=== PATIENT | male | born 1970 | race African-American/Black ===

== ENCOUNTER → 2017-01-03 | Day surgery (SDC) | payer BC ==
[~2017-01-03] VITALS: Ht 182.9 cm; Wt 134.3 kg
[2017-01-03] VITALS (11 sets, daily range): BP systolic 86–146; BP diastolic 29–94
[~2017-01-03] MED LIST: Alfentanil 2ml Inj ONE; Atropine Inj 1mg/10ml Syr IV PRN; Bupivacaine w/Epi 0.25% 30ml Vial INJ ONE; DiphenhydrAMINE 50mg/ml Inj IVP PRN; EPINEPHrine 1mg/1ml Amp ONE; Glycopyrrolate 0.2mg/ml 1ml Vial ONE; HYDROmorphone 1mg/ml Carpuject SUBQ PRN; Hydromorphone 0.5mg/0.5ml inj IVP PRN; Ketorolac 30mg Inj IV PRN; Ketorolac 60mg Inj IV PRN; LISINOPRIL-HCT1 EACH ORAL; LORazepam Inj 2mg/ml 1ml IV PRN; LR 1000ml 1,000 ML IVLG SCH; LR 1000ml ONE; Labetalol 5mg/ml 20ml vial IV PRN; Lidocaine 1% Plain 30 ml INJ ONE; Meperidine 25mg/ml Inj IV PRN; Metoclopramide 10mg/2ml Inj IVP PRN; Midazolam 2mg/2ml Inj IVP PRN; Midazolam 2mg/2ml Inj ONE; Morphine Sulfate 2mg/ml Inj IVP PRN; NS Irrig 4000ml IRRIG ONE; Neostigmine 1mg/ml 10ml Inj ONE; Norco 5mg/325mg tab ORAL PRN; Norco 7.5mg/325mg tab ORAL PRN; Oxycodone/Acetaminophen 5-325 ORAL PRN; Propofol 10mg/ml 100ml btl IV ONE; Sterile Water Irrig 1000ml IRRIG ONE; Zemuron 50mg/5ml Inj IV ONE; fentaNYL 100 mcg/2 mL IV PRN
--- NOTE | 2017-01-03 07:18 | Anethesia Preoperative Eval ---
Anesthesia Pre-op PMH/ROS General Date of Evaluation: Jan 03, 2017 Time of Evaluation: 07:23 Anesthesiologist: Herson ASA Score: ASA 3 Mallampati Score Class I : Soft palate, uvula, fauces, pillars visible Class II: Soft palate, uvula, fauces visible Class III: Soft palate, base of uvula visible Class IV: Only hard plate visible Mallampati Classification: Class III Surgeon: Reynold Diagnosis: R Knee Pain Surgical Procedure: R Knee Arthroscopy Anesthesia History: none Family History: no anesthesia problems Allergies: Coded Allergies: No Known Allergies (Unverified , 01/02/17) Medications: see eMAR Past Medical History Cardiovascular: Reports: HTN Other: obesity - BMI 44 Morbid Anesthesia Pre-op Phys. Exam Physician Exam Last Vital Signs Date Time Temp Pulse Resp B/P Pulse Ox O2 Delivery O2 Flow Rate FiO2 01/03/17 06:13 98.4 89 18 146/94 96 Room Air Constitutional: NAD Neurologic: CN 2-12 intact Cardiovascular: RRR Respiratory: CTA Gastrointestinal: S/NT/ND Airway Exam Mallampati Score: Class III MO: limited ROM: limited Teeth: intact Anesthesia Pre-op A/P Risk Assessment & Plan Assessment: ASA 3 Plan: GA, Glidescope, BIS Pre-Antibiotics Dru Grams Ancef IV Given Within 1 Hr of Incision: Yes Time Given: 07:41 Jose Bains MD Jan 03, 2017 07:18
--- NOTE | 2017-01-03 07:18 | Pre-Procedure Note/Attestation ---
Pre-Procedure Note/Attestation Complete Prior to Procedure Planned Procedure: right Procedure Narrative: Right knee arthroscopy with partial menisectomy Attestation I attest that I discussed the nature of the procedure; its benefits; risks and complications; and alternatives (and the risks and benefits of such alternatives ), prior to the procedure, with the patient (or the patient's legal sales representative [employer]). I attest that, if there was a reasonable possibility of needing a blood transfusion, the patient (or the patient's legal sales representative [employer]) was given the [facility] standardized written summary, pursuant to the Adal Gael Blood Safety Act ([place] Health and Safety Code # 1645, as amended). I attest that I re-evaluated the patient just prior to the surgery and that there has been no change in the patient's H&P, except as documented below: LOKI RIVERA Jan 03, 2017 07:18
--- NOTE | 2017-01-03 07:20 | Immediate Post-Op Evaluation ---
Immediate Post-Op Evalulation Immediate Post-Op Evalulation Procedure: R Knee Arthroscopy Date of Evaluation: Jan 03, 2017 Time of Evaluation: 08:54 IV Fluids: 550 LR Blood Products: 0 Estimated Blood Loss: 10 Urinary Output: 0 Blood Pressure Systolic: 125 Blood Pressure Diastolic: 64 Pulse Rate: 86 Respiratory Rate: 16 O2 Sat by Pulse Oximetry: 100 Temperature (Fahrenheit): 97.9 Pain Score (1-10): 3 Nausea: No Vomiting: No Complications 0 Patient Status: awake, reacts, patent, none Hydration Status: adequate Dru Grams Ancef IV Given Within 1 Hr of Incision: Yes Time Given: 07:41 Jose Bains MD Jan 03, 2017 07:20
--- NOTE | 2017-01-03 08:08 | 48 Hour Post Anesthesia Eval ---
Post Anesthesia Evaluation Procedure: R Knee Arthroscopy Date of Evaluation: Jan 03, 2017 Time of Evaluation: 11:12 Blood Pressure Systolic: 134 0: 71 Pulse Rate: 83 Respiratory Rate: 18 Temperature (Fahrenheit): 97.9 O2 Sat by Pulse Oximetry: 100 Airway: patent Nausea: No Vomiting: No Pain Intensity: 3 Hydration Status: adequate Cardiopulmonary Status: Stable Mental Status/LOC: patient returned to baseline Follow-up Care/Observations: 0 Post-Anesthesia Complications: 0 Follow-up care needed: ready to discharge Jose Bains MD Jan 03, 2017 08:08
--- NOTE | 2017-01-03 08:36 | Brief Operative Note ---
Immediate Post Operative Note Operative Note Pre-op Diagnosis: Right knee meniscal tear Procedure: Right knee arthroscopy with partial menisectomy and bi-compartmental chondroplasty Post-op Diagnosis: same as pre-op Findings: consistent w/pre-op dx studies Surgeon: Reynold Anesthesiologist: Herson Anesthesia: general Specimen: none Complications: none Condition: stable Estimated Blood Loss: none Drains: none Implant(s) used?: No LOKI RIVERA Jan 03, 2017 08:35
--- NOTE | 2017-01-03 15:28 | Operative Note - Dictated ---
DATE OF OPERATION: 01/03/2017 SURGEON: Shahriar Flaherty M.D. ([facility] [place]) [employer] WORKER: None. ANESTHESIA: General plus local. COMPLICATIONS: None. ANTIBIOTICS: Ancef. PREOPERATIVE DIAGNOSES: Right knee: 1. Medial meniscus tear. 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 POSTOPERATIVE DIAGNOSES: Right knee: 1. Medial meniscus tear. 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 PROCEDURE: Right knee arthroscopy with: 1. Partial medial meniscectomy. 2. Medial femoral condyle debridement. 3. Patellofemoral debridement. BACKGROUND: The patient has had longstanding right knee pain refractory to nonoperative management. All risks, benefits, and alternatives to surgical intervention were discussed in great detail. Risks included, but were not limited to, bleeding, infection, neurovascular injury, need for additional surgical intervention, failure of pain relief, arthrofibrosis, complications of anesthesia, blood clots, stroke, heart attack, and potentially . He understood these risks, amongst others, and consent was signed. PROCEDURE IN DETAIL: Mr. Sheridan was brought into the operating room, placed supine on the operating table. The right knee was correctly verified for surgical site and prepped and draped in standard sterile fashion. Exam under anesthesia revealed mild varus alignment, 1+ effusion, and no laxity. ANTEROLATERAL AND ANTEROMEDIAL PORTALS WERE MARKED AND INJECTED WITH 20 ML OF 0.25% MARCAINE WITH EPINEPHRINE. A DIAGNOSTIC ARTHROSCOPY WAS THEN UNDERTAKEN. IT REVEALED THE FOLLOWIN. Normal suprapatellar pouch. 2. Grade 2/4 trochlear chondrosis. 3. Grade 2 chondrosis patella. 4. Normal medial gutter. 5. Normal lateral gutter. 6. Normal popliteus. 7. Normal lateral compartment. 8. Normal lateral meniscus. 9. Normal ACL. 10. Normal PCL. 11. Diffuse grade 3 chondrosis with loose edges, medial femoral condyle. 12. Large tear posterior horn, medial meniscus (with extension to the capsule). Using a 4.0 mm shaver in the trochlea, along the patella, and about the medial femoral condyle, chondroplasty was performed. The edges were tested with a probe and found to be well adherent . Using an up biter, left biter, right biter, a 4.0 mm shaver, the posterior horn medial meniscus tear was resected to a stable border. There was bleeding seen to come from the capsule at the edge of the resection. All fluid and debris were evacuated from the knee. A 10 mL of 0.25% Marcaine with epinephrine were injected. The wounds were copiously irrigated and reapproximated using 4-0 Monocryl subcuticular fashion. Steri-Strips were used over Mastisol. Dry sterile dressing was applied. A compressive wrap was placed. He tolerated the procedure well. I attest I performed the entire operation. He was transferred to recovery in good condition. Shahriar Flaherty M.D. ([facility]) DR: Paras JOB#: [id number] CC:
== END | disposition home or self-care (01) ==
LOC: SUR 05:38
DX: M23.221 Derangement of posterior horn of medial meniscus due to old tear or injury, right knee (principal); I10 Essential (primary) hypertension; E66.01 Morbid (severe) obesity due to excess calories; Z68.41 Body mass index [BMI] 40.0-44.9, adult; M17.11 Unilateral primary osteoarthritis, right knee
CPT/HCPCS: 29881; J0171; J0690; J2001; J2250; J2704; J2710; J3490; J7120; 94003; 94150